=== PATIENT | female | born 2000 ===

== ENCOUNTER 2019-11-15 07:50 | Outpatient (CLI) | payer OTHER | END 2019-11-15 12:19 | disposition home or self-care (01) | LOC: NUCLEAR 07:50 | DX: R10.13 Epigastric pain (principal) | CPT/HCPCS: 78227; A9537 ==

== ENCOUNTER 2020-07-28 02:50 | Emergency (ER) | payer OTHER ==
[~2020-07-28] VITALS: Ht 160 cm; Wt 72.6 kg
[2020-07-28] MEDS ORDERED: MOBIC15 MG PO (08:21)
[2020-07-28] MEDS ORDERED: PEPCID40 MG PO (08:21)
[2020-07-28] MEDS ORDERED: LEVSIN/SL0.125 MG SL (08:21)
== END 2020-07-28 08:31 | disposition home or self-care (01) ==
LOC: ER 02:50
DX: R10.13 Epigastric pain (principal); R07.89 Other chest pain; Z03.818 Encounter for observation for suspected exposure to other biological agents ruled out

== ENCOUNTER → 2020-08-17 | Emergency (ER) | payer OTHER ==
[~2020-08-17] VITALS: Ht 160 cm; Wt 72.6 kg
[~2020-08-17] MED LIST: LEVSIN/SL0.125 MG SL; MOBIC15 MG PO; PEPCID40 MG PO
== END | disposition home or self-care (01) ==
LOC: ER 01:09
DX: R00.2 Palpitations (principal); M94.0 Chondrocostal junction syndrome [Tietze]